=== PATIENT | female | born 1940 | race Caucasian/White ===

== ENCOUNTER 2019-05-09 12:31 | Emergency (ER) | payer MEDICARE, BC ==
[2019-05-09] MEDS ORDERED: Diltiazem 25 MG/5 ML SDV IVPUSH ONE ×2 (12:33→13:46)
--- NOTE | 2019-05-09 13:32 | CR ---
CHEST: Portable CLINICAL HISTORY:Chest pain COMPARISON:None FINDINGS: The heart size, pulmonary vascular and hilar structures are normal. No infiltrate effusion or pneumothorax is seen. IMPRESSION: No acute cardiopulmonary process. Electronic monitor over the left upper chest obscures some detail
[2019-05-09] MEDS ORDERED: Diltiazem 120 MG Cap.CD PO ONE (13:47)
--- NOTE | 2019-05-09 14:55 | EDM.PDOC ---
ED HPI GENERAL MEDICAL PROBLEM - General Chief Complaint: Cardiovascular Problem Stated Complaint: VIA NOR[facility] AM Time Seen by Provider: 05/09/19 12:32 Source of Information: Reports: Patient, EMS History Limitations: Reports: No Limitations - History of Present Illness INITIAL COMMENTS - FREE TEXT/NARRATIVE: This lady comes in for palpitations and rapid heart rate. She denies any cardiac history but was at home working in the garden when suddenly she felt palpitations and felt faint. EMS was called and they've noted atrial fibrillation with rapid ventricular response on an EKG and then she was transported directly to the hospital. She denies ever having any kind of chest pain. She was seen in clinic just recently and a cutaneous cardiac event monitor was then placed on her chest and has not been read yet however area she was having some irregular heartbeat at that time - Related Data Allergies Allergy/AdvReac Type Severity Reaction Status Date / Time adhesive Allergy Rash Verified 06/12/14 07:13 Home Meds: Home Meds Amitriptyline HCl 25 mg PO BEDTIME 03/14/14 [History] Fluticasone Propionate 0.5 gm MC DAILY 03/14/14 [History] Gabapentin [Neurontin] 300 mg PO TID 03/14/14 [History] Lisinopril 40 mg PO DAILY 03/14/14 [History] PARoxetine HCl [Paroxetine HCl] 10 mg PO DAILY 03/14/14 [History] Rosuvastatin [Crestor] 10 mg PO BEDTIME 03/14/14 [History] Zolpidem [Ambien] 5 mg PO BEDTIME 03/14/14 [History] Pantoprazole [Protonix] 40 mg PO BID 06/07/14 [History] Sucralfate [Carafate] 1 gm PO QID 06/07/14 [History] oxyCODONE HCl/Acetaminophen [Percocet 5-325 mg Tablet] 1 tab PO Q4HR PRN [History] Allopurinol [Zyloprim] 100 mg PO DAILY 06/12/14 [History] Calcipotriene [Dovonex 0.005% Crm] 1 applic TOP DAILY 06/12/14 [History] Ferrous Sulfate [Iron] 325 mg PO TID 06/12/14 [History] Hydromorphone 07/20/14 [History] Morphine 07/20/14 [History] Past Medical History HEENT History: Reports: Impaired Vision 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 ED EXAM, GENERAL - Physical Exam Exam: See Below Exam Limited By: No Limitations General Appearance: Alert, WD/WN, Mild Distress Eye Exam: Bilateral Eye: Normal Inspection Throat/Mouth: Normal Inspection Head: Atraumatic Neck: Normal Inspection Respiratory/Chest: Lungs Clear Cardiovascular: Tachycardia, Irregularly Irregular GI/Abdominal: Non-Tender Extremities: Normal Inspection Neurological: Alert, Oriented Psychiatric: Normal Affect Skin Exam: Warm, Dry Course - Vital Signs Last Recorded V/S: Last Vital Signs Temp 34.7 C L 05/09/19 12:49 Pulse 84 05/09/19 14:05 Resp 14 05/09/19 13:31 BP 154/79 H 05/09/19 14:05 Pulse Ox 96 05/09/19 13:31 - Orders/Labs/Meds Orders: Active Orders 24 hr Category Date Time Status EKG Documentation Completion [RC] ASDIRECTED Care 05/09/19 12:33 Active EKG 12 Lead [EK] Urgent Ther 05/09/19 12:33 Ordered Labs: Laboratory Tests 05/09/19 05/09/19 Range/Units 12:40 12:40 WBC 9.4 (4.5-11.0) K/uL RBC 4.66 (3.30-5.50) M/uL Hgb 14.4 D (12.0-15.0) g/dL Hct 44.7 (36.0-48.0) % MCV 96 (80-98) fL MCH 31 (27-31) pg MCHC 32 (32-36) % Plt Count 247 (150-400) K/uL Neut % (Auto) 67 H (36-66) % Lymph % (Auto) 21 L (24-44) % [place] % (Auto) 10 H (2-6) % Eos % (Auto) 2 (2-4) % Baso % (Auto) 0 (0-1) % Sodium 143 (140-148) mmol/L Potassium 4.0 (3.6-5.2) mmol/L Chloride 105 (100-108) mmol/L Carbon Dioxide 26 (21-32) mmol/L Anion Gap 11.6 (5.0-14.0) mmol/L BUN 19 H D (7-18) mg/dL Creatinine 1.0 (0.6-1.0) mg/dL Est Cr Clr Drug Dosing 37.12 mL/min Estimated GFR (MDRD) 53 L (>60) Glucose 101 (74-106) mg/dL Calcium 9.1 D (8.5-10.1) mg/dL Total Bilirubin 0.4 (0.2-1.0) mg/dL AST 13 L (15-37) U/L ALT 28 (12-78) U/L Alkaline Phosphatase 69 (46-116) U/L Troponin I < 0.017 (0.000-0.056) ng/mL Total Protein 6.7 (6.4-8.2) g/dL Albumin 3.5 (3.4-5.0) g/dL Globulin 3.2 (2.3-3.5) g/dL Albumin/Globulin Ratio 1.1 L (1.2-2.2) Meds: Medications Discontinued Medications Generic Name Dose Route Start Last Admin Trade Name Freq PRN Reason Stop Dose Admin Diltiazem HCl 20 mg 05/09/19 12:33 05/09/19 12:44 Diltiazem IVPUSH 05/09/19 12:34 20 mg ONETIME ONE Administration Diltiazem HCl 12.5 mg 05/09/19 13:46 05/09/19 13:58 Diltiazem IVPUSH 05/09/19 13:47 12.5 mg ONETIME ONE Administration Diltiazem HCl 120 mg 05/09/19 13:47 05/09/19 14:05 Cardizem Cd PO 05/09/19 13:48 120 mg ONETIME ONE Administration - Re-Assessments/Exams Free Text/Narrative Re-Assessment/Exam: 05/09/19 15:08 Monitor shows atrial fibrillation with rapid ventricular response. Ventricular rate generally in about the 130s. Treatment the patient received Cardizem 20 mg IV. This brought the heart rate down to approximately 100 and after idea. Of this it began to increase little bit and she was given an additional 12.5 mg. This brought the heart rate down to the 90s. She remains in atrial fibrillation but feels much better. I spoke with the technology specialist recreation specialist at [facility] in [place]. I did not get the name of the doctor but it was a female and she will the fast track her on an appointment for clinic. She asked me to put her on Eliquis but I told her because of her GI bleeding I preferred not to do this. Departure - Departure Time of Disposition: 15:10 Disposition: Home, Self-Care 01 Condition: Fair Clinical Impression: Atrial fibrillation with rapid ventricular response Referrals: PCP,None [Primary Care Provider] - Forms: ED Department Discharge Additional Instructions: continue all your usual medications but add the diltiazem extended release 120 mg once daily. You received the first dose in the ER. The cardiology clinic at [facility] in [place] will contact you probably tomorrow to arrange an appointment. - My Orders Last 24 Hours: My Active Orders 05/09/19 12:33 EKG Documentation Completion [RC] ASDIRECTED EKG 12 Lead [EK] Urgent - Assessment/Plan Last 24 Hours: My Active Orders 05/09/19 12:33 EKG Documentation Completion [RC] ASDIRECTED EKG 12 Lead [EK] Urgent
== END 2019-05-09 15:23 | disposition home or self-care (01) ==
LOC: JP.ED 12:31
DX: I48.2 Chronic atrial fibrillation (principal); Z91.048 Other nonmedicinal substance allergy status; Z79.899 Other long term (current) drug therapy
CPT/HCPCS: 36415; 71045; 80053; 84484; 85025; 93005; 96374; 96376; 99285; A9270; J3490; 93010; 99283

== ENCOUNTER 2019-08-20 09:06 | Emergency (ER) | payer MEDICARE, BC ==
--- NOTE | 2019-08-20 09:46 | EDM.PDOC ---
ED HPI GENERAL MEDICAL PROBLEM - General Chief Complaint: Respiratory Problem Stated Complaint: COUGHING Time Seen by Provider: 08/20/19 09:43 Source of Information: Reports: Patient History Limitations: Reports: No Limitations - History of Present Illness INITIAL COMMENTS - FREE TEXT/NARRATIVE: matteo has had a bad cough for about 2 weeks. She is coughing markedly. She is not running high temps. She has had some low grade fevers. She is very sob with ambulation. Onset: Gradual, Other ( last 10 days. ) Duration: Hour(s): Location: Reports: Chest Associated Symptoms: Reports: Cough, Shortness of Breath, Weakness - Related Data Allergies Allergy/AdvReac Type Severity Reaction Status Date / Time adhesive Allergy Rash Verified 06/12/14 07:13 nickel Allergy Hives Verified 08/20/19 09:33 Home Meds: Home Meds Fluticasone Propionate 0.5 gm MC DAILY 03/14/14 [History] Gabapentin [Neurontin] 300 mg PO TID 03/14/14 [History] Lisinopril 40 mg PO DAILY 03/14/14 [History] PARoxetine HCl [Paroxetine HCl] 10 mg PO DAILY 03/14/14 [History] Rosuvastatin [Crestor] 10 mg PO BEDTIME 03/14/14 [History] Zolpidem [Ambien] 5 mg PO BEDTIME 03/14/14 [History] Pantoprazole [Protonix] 40 mg PO BID 06/07/14 [History] Sucralfate [Carafate] 1 gm PO QID 06/07/14 [History] Allopurinol [Zyloprim] 100 mg PO DAILY 06/12/14 [History] Calcipotriene [Dovonex 0.005% Crm] 1 applic TOP DAILY 06/12/14 [History] Ferrous Sulfate [Iron] 325 mg PO TID 06/12/14 [History] Albuterol Sulfate [Proair Hfa] 8.5 gm IH ASDIRECTED 08/20/19 [History] Amoxicillin 875 mg PO TID 08/20/19 [History] Dronedarone [Multaq] 1 tab PO BID 08/20/19 [History] Meloxicam 7.5 mg PO DAILY 08/20/19 [History] Promethazine HCl/Codeine [Promethazine-Codeine Syrup] 5 ml PO ASDIRECTED [History] Warfarin [Coumadin] 5 mg PO DAILY 08/20/19 [History] Zolpidem [Ambien] 5 mg PO BEDTIME PRN 08/20/19 [History] amLODIPine Besylate [Amlodipine Besylate] 5 mg PO DAILY 08/20/19 [History] traZODone HCl [Trazodone HCl] 50 mg PO BEDTIME 08/20/19 [History] Past Medical History HEENT History: Reports: Impaired Vision 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: - Infectious Disease History Infectious Disease History: Reports: Chicken Pox, Measles, Mumps - Past Surgical History GI Surgical History: Reports: Appendectomy, Hernia Repair/Other Female Surgical History: Reports: Hysterectomy Musculoskeletal Surgical History: Reports: Other (See Below) Other Musculoskeletal Surgeries/Procedures:: back surgery Social & Family History - Tobacco Use Smoking Status *Q: Never Smoker - Caffeine Use Caffeine Use: Reports: Coffee ED ROS GENERAL - Review of Systems Review Of Systems: See Below Constitutional: Reports: Chills, Malaise HEENT: Reports: No Symptoms Respiratory: Reports: Shortness of Breath, Cough, Other (pt is not raising sputum. ) Cardiovascular: Reports: No Symptoms Endocrine: Reports: No Symptoms GI/Abdominal: Reports: No Symptoms : Reports: No Symptoms Musculoskeletal: Reports: No Symptoms Skin: Reports: No Symptoms Neurological: Reports: No Symptoms ED EXAM, GENERAL - Physical Exam Exam: See Below Free Text/Narrative:: pt arrived at this time with a marked cough. She is not raising sputum. She does not have a fever. Exam Limited By: No Limitations General Appearance: Alert, Anxious, Moderate Distress Ears: Normal TMs Nose: Normal Inspection Throat/Mouth: Normal Inspection Head: Atraumatic Neck: Normal Inspection Respiratory/Chest: Decreased Breath Sounds, Wheezing Cardiovascular: Regular Rate, Rhythm, Tachycardia GI/Abdominal: Soft, Non-Tender Rectal (Female) Exam: Deferred Back Exam: Normal Inspection Extremities: Normal Inspection Neurological: Alert, Oriented, Normal Cognition Course - Vital Signs Last Recorded V/S: Last Vital Signs Temp 37.0 C 08/20/19 09:28 Pulse 78 08/20/19 09:28 Resp 20 08/20/19 09:28 BP 185/89 H 08/20/19 09:28 Pulse Ox 90 L 08/20/19 09:28 - Orders/Labs/Meds Orders: Active Orders 24 hr Category Date Time Status RT Aerosol Therapy [RC] ASDIRECTED Care 08/20/19 09:43 Active RT Aerosol Therapy [RC] ASDIRECTED Care 08/20/19 12:01 Active UA W/MICROSCOPIC [URIN] Urgent Lab 08/20/19 09:35 Ordered Sodium Chloride 0.9% [Normal Saline] 1,000 ml Med 08/20/19 12:00 Active IV ASDIRECTED Medication Orders Sodium Chloride (Normal Saline) 1,000 mls @ 999 mls/hr IV ASDIRECTED MARY Last Admin: 08/20/19 12:19 Dose: 999 mls/hr Labs: Laboratory Tests 08/20/19 08/20/19 08/20/19 Range/Units 09:45 09:45 09:45 WBC 15.1 H (4.5-11.0) K/uL RBC 4.09 (3.30-5.50) M/uL Hgb 12.4 D (12.0-15.0) g/dL Hct 39.2 (36.0-48.0) % MCV 96 (80-98) fL MCH 30 (27-31) pg MCHC 32 (32-36) % Plt Count 380 (150-400) K/uL Neut % (Auto) 83 H (36-66) % Lymph % (Auto) 9 L (24-44) % [place] % (Auto) 8 H (2-6) % Eos % (Auto) 0 L (2-4) % Baso % (Auto) 0 (0-1) % Sodium 144 (140-148) mmol/L Potassium 3.7 (3.6-5.2) mmol/L Chloride 109 H (100-108) mmol/L Carbon Dioxide 23 (21-32) mmol/L Anion Gap 15.7 H (5.0-14.0) mmol/L BUN 25 H (7-18) mg/dL Creatinine 0.9 (0.6-1.0) mg/dL Est Cr Clr Drug Dosing 42.15 mL/min Estimated GFR (MDRD) > 60 (>60) Glucose 98 (74-106) mg/dL Calcium 9.0 (8.5-10.1) mg/dL Total Bilirubin 0.3 (0.2-1.0) mg/dL AST 15 (15-37) U/L ALT 25 (12-78) U/L Alkaline Phosphatase 72 (46-116) U/L NT-Pro-B Natriuret Pep 503 H (5-450) pg/mL Total Protein 7.4 (6.4-8.2) g/dL Albumin 3.4 (3.4-5.0) g/dL Globulin 4.0 H (2.3-3.5) g/dL Albumin/Globulin Ratio 0.9 L (1.2-2.2) Meds: Medications Generic Name Dose Route Start Last Admin Trade Name Freq PRN Reason Stop Dose Admin Sodium Chloride 1,000 mls @ 999 mls/hr 08/20/19 12:00 08/20/19 12:19 Normal Saline IV 999 mls/hr ASDIRECTED MARY Administration Discontinued Medications Generic Name Dose Route Start Last Admin Trade Name Freq PRN Reason Stop Dose Admin Albuterol 2.5 mg 08/20/19 09:43 08/20/19 09:51 Proventil Neb Soln NEB 08/20/19 09:44 2.5 mg ONETIME ONE Administration Albuterol 2.5 mg 08/20/19 12:01 08/20/19 12:22 Proventil Neb Soln NEB 08/20/19 12:02 2.5 mg ONETIME ONE Administration Ceftriaxone Sodium 1 gm/ 50 mls @ 100 mls/hr 08/20/19 11:58 08/20/19 12:21 Sodium Chloride IV 08/20/19 12:27 100 mls/hr ONETIME ONE Administration - Re-Assessments/Exams Free Text/Narrative Re-Assessment/Exam: 08/20/19 12:19 pt did have a neg influ done at the clinic. Her wbc was 15,ooo and mainly segs. She has had 3 days of amoxicillin. Her chest xray reveals a middle lobe pneumonia on the rt. She had a neb and shresponded to that and her cough is better. Departure - Departure Time of Disposition: 12:21 Disposition: Home, Self-Care 01 Condition: Fair Clinical Impression: Right middle lobe pneumonia - Discharge Information Instructions: Community-Acquired Pneumonia, Adult, [id number] Referrals: Juan Haas MD [Primary Care Provider] - Forms: ED Department Discharge Care Plan Goals: .push fluids, tylenol for body aches, follow up with Juan Scott in 4-5 days, levoquin 500mg daily , stop amoxicillin, albuterol neb tid 2.5 in 3 cc. geovanny quintanillaes 1 tab q8h as needed for the cough cool mist humidifier at the bedside. - My Orders Last 24 Hours: My Active Orders 08/20/19 09:35 UA W/MICROSCOPIC [URIN] Urgent 08/20/19 09:43 RT Aerosol Therapy [RC] ASDIRECTED 08/20/19 12:00 Sodium Chloride 0.9% [Normal Saline] 1,000 ml IV ASDIRECTED 08/20/19 12:01 RT Aerosol Therapy [RC] ASDIRECTED - Assessment/Plan Last 24 Hours: My Active Orders 08/20/19 09:35 UA W/MICROSCOPIC [URIN] Urgent 08/20/19 09:43 RT Aerosol Therapy [RC] ASDIRECTED 08/20/19 12:00 Sodium Chloride 0.9% [Normal Saline] 1,000 ml IV ASDIRECTED 08/20/19 12:01 RT Aerosol Therapy [RC] ASDIRECTED
[2019-08-20] MEDS: Albuterol 0.083% 2.5 MG/3 ML Neb Soln NEB ONE ×2 (09:51→12:22)
--- NOTE | 2019-08-20 11:40 | CRLCR ---
INDICATION: Cough. Shortness of breath. TECHNIQUE: Two-view chest. COMPARISON: Portable chest May 09, 2019. FINDINGS: New curvilinear opacity right middle lobe likely related to an infectious or inflammatory process. Clear left lung. Normal heart size. Hypertrophic spurring of the lower thoracic spine. Postsurgical change from upper lumbar spine fusion posteriorly. IMPRESSION: New infiltrate right middle lobe. Radiographic follow up recommended after appropriate treatment. Dictated by Jayy Duran MD @ Aug 20 2019 11:37AM Signed by Dr. Jayy Duran @ Aug 20 2019 11:38AM
[2019-08-20] MEDS: Sodium Chloride 0.9% 1,000 ML IV SCH (12:19)
[2019-08-20] MEDS: cefTRIAXone 1 GM in Sodium Chloride 0.9% 50 ML IV ONE (12:21)
== END 2019-08-20 13:48 | disposition home or self-care (01) ==
LOC: JP.ED 09:06
DX: J18.9 Pneumonia, unspecified organism (principal); Z79.899 Other long term (current) drug therapy; Z91.09 Other allergy status, other than to drugs and biological substances
CPT/HCPCS: 36415; 71046; 80053; 83880; 85025; 94640; 96365; 99285; J0696; J7030; J7050

== ENCOUNTER 2020-05-01 20:12 | Emergency (ER) | payer MEDICARE, BC ==
[2020-05-01] MEDS ORDERED: Sodium Chloride 0.9% 1,000 ML IV ONE (21:04)
--- NOTE | 2020-05-01 21:09 | EDM.PDOC ---
ED HPI GENERAL MEDICAL PROBLEM - General Chief Complaint: General Stated Complaint: A FIB Time Seen by Provider: 05/01/20 21:04 Source of Information: Reports: Patient, Family, RN, RN Notes Reviewed History Limitations: Reports: No Limitations - History of Present Illness INITIAL COMMENTS - FREE TEXT/NARRATIVE: Pt here with daughter via private vehicle. Pt states had three explosive diarrhea stools since 1400 today. Was incontinent with two of them due to quick onset. Pt feels weak. Denies pain or distress. Pt indicates has Afib but takes 1/2 doses of Afib medicaiton a day due to cost. Claims cardiac dr bee. Onset: Today Onset Date: 05/01/20 Onset Time: 14:00 Duration: Intermittent, Recurring Location: Reports: Abdomen Quality: Reports: Other (explosive diarrhea ) Improves with: Reports: None Worsens with: Reports: None Associated Symptoms: Reports: Weakness - Related Data Allergies Allergy/AdvReac Type Severity Reaction Status Date / Time adhesive Allergy Rash Verified 06/12/14 07:13 nickel Allergy Hives Verified 08/20/19 09:33 Home Meds: Home Meds Fluticasone Propionate 0.5 gm MC DAILY 03/14/14 [History] Gabapentin [Neurontin] 300 mg PO TID 03/14/14 [History] Lisinopril 40 mg PO DAILY 03/14/14 [History] PARoxetine HCL [Paroxetine HCl] 10 mg PO DAILY 03/14/14 [History] Rosuvastatin [Crestor] 10 mg PO BEDTIME 03/14/14 [History] Zolpidem [Ambien] 5 mg PO BEDTIME 03/14/14 [History] Pantoprazole [Protonix] 40 mg PO BID 06/07/14 [History] Sucralfate [Carafate] 1 gm PO QID 06/07/14 [History] Calcipotriene [Dovonex 0.005% Crm] 1 applic TOP DAILY 06/12/14 [History] Ferrous Sulfate [Iron] 325 mg PO TID 06/12/14 [History] allopurinoL [Zyloprim] 100 mg PO DAILY 06/12/14 [History] Dronedarone [Multaq] 1 tab PO BID 08/20/19 [History] Meloxicam 7.5 mg PO DAILY 08/20/19 [History] Promethazine HCl/Codeine [Promethazine-Codeine Syrup] 5 ml PO ASDIRECTED 1 10/20/18 [History] Warfarin [Coumadin] 5 mg PO DAILY 08/20/19 [History] Zolpidem [Ambien] 5 mg PO BEDTIME PRN 08/20/19 [History] amLODIPine Besylate [Amlodipine Besylate] 5 mg PO DAILY 08/20/19 [History] traZODone HCl [Trazodone HCl] 25 mg PO BEDTIME 08/20/19 [History] Past Medical History HEENT History: Reports: Impaired Vision Cardiovascular History: Reports: Afib, High Cholesterol, Hypertension Gastrointestinal History: Reports: Chronic Diarrhea, Gastritis, GERD, GI Bleed Other Genitourinary History: stent for blockage 25 years ago and removed 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: Musculoskeletal History: Reports: Gout Hematologic History: Reports: Blood Transfusion(s) Dermatologic History: Reports: Psoriasis - Infectious Disease History Infectious Disease History: Reports: Chicken Pox, Measles, Mumps - Past Surgical History GI Surgical History: Reports: Appendectomy, Hernia Repair/Other Female Surgical History: Reports: Hysterectomy Neurological Surgical History: Reports: Lumbar Spine, Spinal Fusion Musculoskeletal Surgical History: Reports: Other (See Below) Other Musculoskeletal Surgeries/Procedures:: back surgery Social & Family History - Tobacco Use Smoking Status *Q: Never Smoker - Caffeine Use Caffeine Use: Reports: Coffee - Living Situation & Occupation Living situation: Reports: with Spouse Occupation: Retired (Single dwelling home) ED ROS GENERAL - Review of Systems Review Of Systems: See Below Constitutional: Reports: Weakness HEENT: Reports: No Symptoms Respiratory: Reports: No Symptoms Cardiovascular: Reports: Other (Afib ) Endocrine: Reports: No Symptoms GI/Abdominal: Reports: Diarrhea, Stool Incontinence : Reports: No Symptoms Musculoskeletal: Reports: Other (arthritis) Skin: Reports: No Symptoms Neurological: Reports: Weakness Psychiatric: Reports: No Symptoms Hematologic/Lymphatic: Reports: No Symptoms Immunologic: Reports: No Symptoms ED EXAM, GENERAL - Physical Exam Exam: See Below Exam Limited By: No Limitations General Appearance: Alert, WD/WN, Mild Distress Eye Exam: Bilateral Eye: PERRL Throat/Mouth: Normal Inspection, Normal Lips Head: Normocephalic Neck: Normal Inspection Respiratory/Chest: No Respiratory Distress, Lungs Clear, Normal Breath Sounds, No Accessory Muscle Use Cardiovascular: Normal Peripheral Pulses, No Murmur, No Rub, Irregularly Irregular (Hx Afib) Peripheral Pulses: 2+: Radial (L), Radial (R), Dorsalis Pedis (L), Dorsalis Pedis (R) GI/Abdominal: Normal Bowel Sounds, Soft, Non-Tender, No Organomegaly, No Distention, No Mass (Female) Exam: Deferred Rectal (Female) Exam: Deferred Extremities: Normal Inspection Neurological: Alert, Oriented, CN II-XII Intact, Normal Cognition, No Motor/Sensory Deficits Psychiatric: Normal Affect, Normal Mood Skin Exam: Warm, Dry, Intact, Normal Color, Diaphoretic (At time of stooling) Lymphatic: No Adenopathy Course - Vital Signs Last Recorded V/S: Last Vital Signs Temp 36.4 C 05/01/20 20:34 Pulse 127 H 05/01/20 22:00 Resp 13 05/01/20 21:36 BP 125/86 05/01/20 22:00 Pulse Ox 90 L 05/01/20 21:36 - Orders/Labs/Meds Orders: Active Orders 24 hr Category Date Time Status EKG Documentation Completion [RC] ASDIRECTED Care 05/01/20 21:13 Active Chest 2V [CR] Stat Exams 05/01/20 20:43 Taken UA W/O MICROSCOPIC [URIN] Stat Lab 05/01/20 20:43 Ordered EKG 12 Lead [EK] Routine Ther 05/01/20 21:13 Ordered Labs: Laboratory Tests 05/01/20 05/01/20 05/01/20 Range/Units 20:50 20:50 20:50 WBC 14.4 H (4.5-11.0) K/uL RBC 4.22 (3.30-5.50) M/uL Hgb 12.8 (12.0-15.0) g/dL Hct 41.1 (36.0-48.0) % MCV 97 (80-98) fL MCH 30 (27-31) pg MCHC 31 L (32-36) % Plt Count 312 (150-400) K/uL Neut % (Auto) 72 H (36-66) % Lymph % (Auto) 18 L (24-44) % Martin % (Auto) 9 H (2-6) % Eos % (Auto) 1 L (2-4) % Baso % (Auto) 0 (0-1) % Sodium 145 (140-148) mmol/L Potassium 3.7 (3.6-5.2) mmol/L Chloride 105 (100-108) mmol/L Carbon Dioxide 23 (21-32) mmol/L Anion Gap 17.1 H (5.0-14.0) mmol/L BUN 31 H (7-18) mg/dL Creatinine 1.6 H D (0.6-1.0) mg/dL Est Cr Clr Drug Dosing 23.81 mL/min Estimated GFR (MDRD) 31 L (>60) Glucose 135 H (74-106) mg/dL Lactic Acid 1.5 (0.4-2.0) mmol/L Calcium 9.2 (8.5-10.1) mg/dL Total Bilirubin 0.4 (0.2-1.0) mg/dL AST 19 (15-37) U/L ALT 26 (12-78) U/L Alkaline Phosphatase 60 (46-116) U/L Total Protein 7.0 (6.4-8.2) g/dL Albumin 3.7 (3.4-5.0) g/dL Globulin 3.3 (2.3-3.5) g/dL Albumin/Globulin Ratio 1.1 L (1.2-2.2) Procalcitonin ng/mL 05/01/20 Range/Units 20:50 WBC (4.5-11.0) K/uL RBC (3.30-5.50) M/uL Hgb (12.0-15.0) g/dL Hct (36.0-48.0) % MCV (80-98) fL MCH (27-31) pg MCHC (32-36) % Plt Count (150-400) K/uL Neut % (Auto) (36-66) % Lymph % (Auto) (24-44) % Martin % (Auto) (2-6) % Eos % (Auto) (2-4) % Baso % (Auto) (0-1) % Sodium (140-148) mmol/L Potassium (3.6-5.2) mmol/L Chloride (100-108) mmol/L Carbon Dioxide (21-32) mmol/L Anion Gap (5.0-14.0) mmol/L BUN (7-18) mg/dL Creatinine (0.6-1.0) mg/dL Est Cr Clr Drug Dosing mL/min Estimated GFR (MDRD) (>60) Glucose (74-106) mg/dL Lactic Acid (0.4-2.0) mmol/L Calcium (8.5-10.1) mg/dL Total Bilirubin (0.2-1.0) mg/dL AST (15-37) U/L ALT (12-78) U/L Alkaline Phosphatase (46-116) U/L Total Protein (6.4-8.2) g/dL Albumin (3.4-5.0) g/dL Globulin (2.3-3.5) g/dL Albumin/Globulin Ratio (1.2-2.2) Procalcitonin < 0.05 ng/mL Meds: Medications Discontinued Medications Generic Name Dose Route Start Last Admin Trade Name Freq PRN Reason Stop Dose Admin Sodium Chloride 1,000 mls @ 999 mls/hr 05/01/20 21:04 05/01/20 21:14 Normal Saline IV 05/01/20 22:04 999 mls/hr .BOLUS ONE Administration Loperamide HCl 4 mg 05/01/20 22:44 Imodium PO 05/01/20 22:45 ONETIME ONE Metoclopramide HCl 10 mg 05/01/20 21:23 05/01/20 21:34 Reglan PO 05/01/20 21:24 10 mg ONETIME ONE Administration Metoprolol Tartrate 2.5 mg 05/01/20 21:27 05/01/20 21:31 Lopressor IVPUSH 05/01/20 21:28 2.5 mg ONETIME ONE Administration Metoprolol Tartrate 2.5 mg 05/01/20 21:54 05/01/20 22:00 Lopressor IVPUSH 05/01/20 21:55 2.5 mg ONETIME ONE Administration - Re-Assessments/Exams Free Text/Narrative Re-Assessment/Exam: 05/01/20 21:12 Examine pt labs ordered Bolus EKG 05/01/20 21:29 EKG done CXR done. Looks good Some labs back. BUN/Crea/GFR abnormal Bolus going HR 110-140's. Lopressor IVP 05/01/20 22:46 Bolus done. Feels better. Will give imodium here and send RX at d/c Departure - Departure Time of Disposition: 22:46 Disposition: Home, Self-Care 01 Condition: Good Clinical Impression: Diarrhea Qualifiers: Diarrhea type: unspecified type Qualified Code(s): R19.7 - Diarrhea, unspecified - Discharge Information *PRESCRIPTION DRUG MONITORING PROGRAM REVIEWED*: Not Applicable *COPY OF PRESCRIPTION DRUG MONITORING REPORT IN PATIENT [place]: Not Applicable Instructions: Food Choices to Help Relieve Diarrhea, Adult, Diarrhea, Adult, [id number] Referrals: Juan Haas MD [Primary Care Provider] - Forms: ED Department Discharge Additional Instructions: Please take Imodium and Reglan as directed. Hold taking the packets until you speak with your provider I would make an appointment to go over medication list with your provider regarding your medication list and possibly switching to Amiodarone for Afib based on the cost. Please monitor your pulse to keep track of Afib or heart irregularities. Should you continue with diarrhea, please seek assistance from your provider or come back to the ER. Sepsis Event Note (ED) - Evaluation Sepsis Screening Result: No Definite Risk - Focused Exam Vital Signs: Vital Signs Temp Pulse Pulse Resp BP BP Pulse Ox 05/01/20 22:00 127 H 125/86 05/01/20 21:36 92 13 125/86 90 L 05/01/20 21:31 120 H 117/78 05/01/20 21:02 109 H 14 117/78 93 L 05/01/20 20:34 36.4 C 142 H 15 140/70 96 - My Orders Last 24 Hours: My Active Orders 05/01/20 20:43 Chest 2V [CR] Stat UA W/O MICROSCOPIC [URIN] Stat 05/01/20 21:13 EKG Documentation Completion [RC] ASDIRECTED EKG 12 Lead [EK] Routine - Assessment/Plan Last 24 Hours: My Active Orders 05/01/20 20:43 Chest 2V [CR] Stat UA W/O MICROSCOPIC [URIN] Stat 05/01/20 21:13 EKG Documentation Completion [RC] ASDIRECTED EKG 12 Lead [EK] Routine
[2020-05-01] MEDS ORDERED: Metoclopramide 10 MG Tab PO ONE (21:23)
[2020-05-01] MEDS ORDERED: Metoprolol Tartrate 5 MG/5 ML SDV IVPUSH ONE ×2 (21:27→21:54)
[2020-05-01] MEDS ORDERED: Loperamide 2 MG Cap PO ONE (22:44)
--- NOTE | 2020-05-02 09:01 | CR ---
CHEST: 2 view CLINICAL HISTORY:A. Fib COMPARISON:2019 FINDINGS: The heart size, pulmonary vascularity and hilar structures are normal. No infiltrate effusion or pneumothorax is seen. There are atherosclerotic changes in the aorta. IMPRESSION: No acute cardiopulmonary process.
== END 2020-05-01 23:03 | disposition home or self-care (01) ==
LOC: JP.ED 20:12
DX: R19.7 Diarrhea, unspecified (principal); I48.91 Unspecified atrial fibrillation; E78.00 Pure hypercholesterolemia, unspecified; I10 Essential (primary) hypertension; M10.9 Gout, unspecified; K21.9 Gastro-esophageal reflux disease without esophagitis; Z91.09 Other allergy status, other than to drugs and biological substances; Z91.048 Other nonmedicinal substance allergy status
CPT/HCPCS: 36415; 71046; 80053; 83605; 84145; 85025; 93005; 93010; 96361; 96374; 99283; 99285; A9270; J3490; J7040

== ENCOUNTER 2020-12-29 13:14 | Emergency (ER) | payer MEDICARE, BC ==
[2020-12-29] MEDS ORDERED: Sodium Chloride 0.9% 10 ML Syringe FLUSH PRN (13:20)
--- NOTE | 2020-12-29 13:27 | EDM.PDOC ---
ED HPI GENERAL MEDICAL PROBLEM - General Chief Complaint: Gastrointestinal Problem Stated Complaint: WEAK VIA [place] Time Seen by Provider: 12/29/20 13:21 Source of Information: Reports: Patient, EMS, Old Records History Limitations: Reports: No Limitations - History of Present Illness INITIAL COMMENTS - FREE TEXT/NARRATIVE: 80 yo female who lives alone is brought in by EMS for nausea, vomiting and diarrhea associated with weakness. Has a pHx of afib, stopped her Eliquis due to a dental appt scheduled for tomorrow. No obvious focal deficits per EMS. Onset of her GI sx's at bedtime last night. No blood in her emesis or stools. No known exposures. Has had a "sinus COBOS" for the past over a week. Her last acetaminophen was last night. Onset: Gradual Onset Date: 12/28/20 Duration: Hour(s):, Getting Worse Location: Reports: Abdomen, Generalized Quality: Reports: Ache (headache, subacute) Severity: Severe (weakness is severe, vomiting and diarrhea is moderate.) Improves with: Reports: None Worsens with: Reports: None Context: Reports: Other (See HPI) Associated Symptoms: Reports: Headaches (preceded the GI sx's by several days. ), Nausea/Vomiting. 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) (none) - Related Data Allergies Allergy/AdvReac Type Severity Reaction Status Date / Time adhesive Allergy Rash Verified 12/29/20 13:34 nickel Allergy Hives Verified 12/29/20 13:34 Home Meds: Home Meds Fluticasone Propionate 0.5 gm MC DAILY 03/14/14 [History] Gabapentin [Neurontin] 600 mg PO DAILY 03/14/14 [History] Lisinopril 40 mg PO DAILY 03/14/14 [History] Rosuvastatin [Crestor] 10 mg PO BEDTIME 03/14/14 [History] Pantoprazole [Protonix] 40 mg PO DAILY 06/07/14 [History] allopurinoL [Zyloprim] 100 mg PO DAILY 06/12/14 [History] Dronedarone [Multaq] 400 mg PO BID 08/20/19 [History] Zolpidem [Ambien] 5 mg PO BEDTIME PRN 08/20/19 [History] amLODIPine Besylate [Amlodipine Besylate] 5 mg PO DAILY 08/20/19 [History] Cholestyramine/Aspartame [Cholestyramine Light Powder] 210 gm PO DAILY 12/29/20 [History] Dicyclomine [Bentyl] 10 mg PO ASDIRECTED PRN 12/29/20 [History] Imipramine HCl [Imipramine] 10 mg PO TID 12/29/20 [History] Loperamide [Imodium] 2 mg PO ASDIRECTED PRN 12/29/20 [History] Metoclopramide [Reglan] 5 mg PO ASDIRECTED PRN 12/29/20 [History] Past Medical History HEENT History: Reports: Impaired Vision Cardiovascular History: Reports: Afib, High Cholesterol, Hypertension Gastrointestinal History: Reports: Chronic Diarrhea, Gastritis, GERD, GI Bleed Other Genitourinary History: stent for blockage 25 years ago and removed 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: Musculoskeletal History: Reports: Gout Hematologic History: Reports: Blood Transfusion(s) Dermatologic History: Reports: Psoriasis - Infectious Disease History Infectious Disease History: Reports: Chicken Pox, Measles, Mumps - Past Surgical History GI Surgical History: Reports: Appendectomy, Hernia Repair/Other Female Surgical History: Reports: Hysterectomy Other Female Surgeries/Procedures: 1 ovary left Neurological Surgical History: Reports: Lumbar Spine, Spinal Fusion Musculoskeletal Surgical History: Reports: Other (See Below) Other Musculoskeletal Surgeries/Procedures:: back surgery Social & Family History - Caffeine Use Caffeine Use: Reports: Coffee - Living Situation & Occupation Living situation: Reports: with Spouse Occupation: Retired (Single dwelling home) ED ROS GENERAL - Review of Systems Review Of Systems: See Below Constitutional: Reports: Malaise, Weakness (generalized) HEENT: Reports: No Symptoms Respiratory: Reports: No Symptoms Cardiovascular: Reports: No Symptoms GI/Abdominal: Reports: Diarrhea, Nausea, Vomiting. Denies: Abdominal Pain, Black Stool, Bloody Stool, Constipation, Flatus, Hematemesis, Hematochezia, Melena : Reports: No Symptoms Musculoskeletal: Reports: No Symptoms Skin: Reports: No Symptoms Neurological: Reports: No Symptoms ED EXAM, GI/ABD - Physical Exam Exam: See Below Exam Limited By: No Limitations General Appearance: Alert, WD/WN, No Apparent Distress Eyes: Bilateral: Normal Appearance Ears: Normal External Exam, Normal Canal, Hearing Grossly Normal, Normal TMs Nose: Normal Inspection, No Blood Throat/Mouth: Normal Inspection, Normal Lips, Normal Oropharynx, Normal Voice, No Airway Compromise Head: Atraumatic, Normocephalic Neck: Normal Inspection Respiratory/Chest: No Respiratory Distress, Lungs Clear, Normal Breath Sounds, No Accessory Muscle Use. No: Chest Non-Tender (sternal tenderness present) Cardiovascular: Regular Rate, Rhythm, No Edema GI/Abdominal Exam: Normal Bowel Sounds, Soft, Non-Tender, No Distention Back Exam: Normal Inspection Extremities: Normal Inspection, Normal Range of Motion, Non-Tender, No Pedal Edema Neurological: Alert, Oriented, CN II-XII Intact, Normal Cognition, No Motor/Sensory Deficits Psychiatric: Normal Affect, Normal Mood Skin Exam: Warm, Dry, Intact, Normal Color, No Rash Course - Vital Signs Last Recorded V/S: Last Vital Signs Temp 36.6 C 12/29/20 13:40 Pulse 71 12/29/20 16:56 Resp 10 L 12/29/20 16:56 BP 122/59 L 12/29/20 16:56 Pulse Ox 96 12/29/20 16:56 Orthostatic Blood Pressure [ 119/67 Standing] Orthostatic Blood Pressure [ 116/70 Sitting] Orthostatic Blood Pressure [ 127/63 Supine] - Orders/Labs/Meds Orders: Active Orders 24 hr Category Date Time Status Cardiac Monitoring [RC] .As Directed Care 12/29/20 13:21 Active Sodium Chloride 0.9% [Saline Flush] Med 12/29/20 13:20 Active 10 ml FLUSH ASDIRECTED PRN Saline Lock Insert [OM.PC] Routine Oth 12/29/20 13:20 Ordered Medication Orders Sodium Chloride (Sodium Chloride 0.9% 10 Ml Syringe) 10 ml FLUSH ASDIRECTED PRN PRN Reason: Keep Vein Open Last Admin: 12/29/20 13:45 Dose: 10 ml Documented by: LEÓN Labs: Laboratory Tests 12/29/20 12/29/20 12/29/20 Range/Units 13:23 13:23 13:59 WBC 14.0 H (4.5-11.0) K/uL RBC 4.45 (3.30-5.50) M/uL Hgb 13.9 (12.0-15.0) g/dL Hct 42.4 (36.0-48.0) % MCV 95 (80-98) fL MCH 31 (27-31) pg MCHC 33 (32-36) % Plt Count 289 (150-400) K/uL ESR (0-25) mm/hr Sodium 142 (140-148) mmol/L Potassium 4.3 (3.6-5.2) mmol/L Chloride 104 (100-108) mmol/L Carbon Dioxide 19 L (21-32) mmol/L Anion Gap 23.3 H (5.0-14.0) mmol/L BUN 22 H (7-18) mg/dL Creatinine 1.2 H (0.6-1.0) mg/dL Est Cr Clr Drug Dosing TNP Estimated GFR (MDRD) 43 L (>60) Glucose 111 H (74-106) mg/dL Calcium 10.2 H (8.5-10.1) mg/dL Total Bilirubin 0.5 (0.2-1.0) mg/dL AST 17 (15-37) U/L ALT 24 (12-78) U/L Alkaline Phosphatase 83 (46-116) U/L Troponin I < 0.017 (0.000-0.056) ng/mL Total Protein 7.3 (6.4-8.2) g/dL Albumin 4.2 (3.4-5.0) g/dL Globulin 3.1 (2.3-3.5) g/dL Albumin/Globulin Ratio 1.4 (1.2-2.2) Urine Color Yellow (YELLOW) Urine Appearance Clear (CLEAR) Urine pH 5.0 (5.0-8.0) Ur Specific [place] 1.025 (1.008-1.030) Urine Protein 30 H (NEGATIVE) mg/dL Urine Glucose (UA) Negative (NEGATIVE) mg/dL Urine Ketones Trace H (NEGATIVE) mg/dL Urine Occult Blood Negative (NEGATIVE) Urine Nitrite Negative (NEGATIVE) Urine Bilirubin Small H (NEGATIVE) Urine Urobilinogen 0.2 (0.2-1.0) EU/dL Ur Leukocyte Esterase Negative (NEGATIVE) Urine RBC 0-5 (0-5) Urine WBC 0-5 (0-5) Ur Epithelial Cells Not seen Amorphous Sediment Moderate Urine Bacteria Occasional Urine Mucus Occasional Urine Other 12/29/20 Range/Units 14:14 WBC (4.5-11.0) K/uL RBC (3.30-5.50) M/uL Hgb (12.0-15.0) g/dL Hct (36.0-48.0) % MCV (80-98) fL MCH (27-31) pg MCHC (32-36) % Plt Count (150-400) K/uL ESR 15 (0-25) mm/hr Sodium (140-148) mmol/L Potassium (3.6-5.2) mmol/L Chloride (100-108) mmol/L Carbon Dioxide (21-32) mmol/L Anion Gap (5.0-14.0) mmol/L BUN (7-18) mg/dL Creatinine (0.6-1.0) mg/dL Est Cr Clr Drug Dosing Estimated GFR (MDRD) (>60) Glucose (74-106) mg/dL Calcium (8.5-10.1) mg/dL Total Bilirubin (0.2-1.0) mg/dL AST (15-37) U/L ALT (12-78) U/L Alkaline Phosphatase (46-116) U/L Troponin I (0.000-0.056) ng/mL Total Protein (6.4-8.2) g/dL Albumin (3.4-5.0) g/dL Globulin (2.3-3.5) g/dL Albumin/Globulin Ratio (1.2-2.2) Urine Color (YELLOW) Urine Appearance (CLEAR) Urine pH (5.0-8.0) Ur Specific [place] (1.008-1.030) Urine Protein (NEGATIVE) mg/dL Urine Glucose (UA) (NEGATIVE) mg/dL Urine Ketones (NEGATIVE) mg/dL Urine Occult Blood (NEGATIVE) Urine Nitrite (NEGATIVE) Urine Bilirubin (NEGATIVE) Urine Urobilinogen (0.2-1.0) EU/dL Ur Leukocyte Esterase (NEGATIVE) Urine RBC (0-5) Urine WBC (0-5) Ur Epithelial Cells Amorphous Sediment Urine Bacteria Urine Mucus Urine Other Meds: Medications Generic Name Dose Route Start Last Admin Trade Name Freq PRN Reason Stop Dose Admin Sodium Chloride 10 ml 12/29/20 13:20 12/29/20 13:45 Sodium Chloride 0.9% 10 Ml Syringe FLUSH 10 ml ASDIRECTED PRN Administration Keep Vein Open Discontinued Medications Generic Name Dose Route Start Last Admin Trade Name Freq PRN Reason Stop Dose Admin Acetaminophen 1,000 mg 12/29/20 13:31 12/29/20 13:45 Acetaminophen 500 Mg Tab PO 12/29/20 13:32 1,000 mg ONETIME ONE Administration Diphenoxylate HCl/Atropine 1 tab 12/29/20 13:38 12/29/20 13:45 Atropine/Diphenoxylate 0.025-2.5 Mg Tab PO 12/29/20 13:39 1 tab ONETIME ONE Administration Lactated Ringer's 1,000 mls @ 1,000 mls/hr 12/29/20 14:00 12/29/20 14:06 Ringers, Lactated IV 12/29/20 14:59 1,000 mls/hr BOLUS ONE Administration Lactated Ringer's 1,000 mls @ 1,000 mls/hr 12/29/20 15:45 12/29/20 15:49 Ringers, Lactated IV 12/29/20 16:44 1,000 mls/hr BOLUS ONE Administration Ondansetron HCl 4 mg 12/29/20 13:30 Ondansetron 4 Mg/2 Ml Sdv IVPUSH 12/29/20 13:31 ONETIME ONE Oxycodone HCl 5 mg 12/29/20 16:10 12/29/20 16:20 Oxycodone 5 Mg Tab PO 12/29/20 16:11 5 mg ONETIME ONE Administration - Radiology Interpretation Free Text/Narrative:: Head CT scan- Impression: 1. No acute intracranial hemorrhage or mass. 2. Mild ethmoid sinus disease. Please note that all CT scans at this facility use dose modulation, iterative reconstruction, and/or weight-based dosing when appropriate to reduce radiation dose to as low as reasonably achievable. Dictated by Julia Peters MD @ Dec 29 2020 3:45PM CT Results Date: 12/29/20 CT Results Time: 16:07 - Re-Assessments/Exams Free Text/Narrative Re-Assessment/Exam: 12/29/20 17:01 Sx's all much better now after tx. Departure - Departure Time of Disposition: 15:10 Disposition: Home, Self-Care 01 Condition: Fair Clinical Impression: Viral gastroenteritis, Mild dehydration, Gastroenteritis Headache Qualifiers: Headache type: unspecified Headache chronicity pattern: acute headache Intractability: not intractable Qualified Code(s): R51.9 - Headache, unspecified - Discharge Information *PRESCRIPTION DRUG MONITORING PROGRAM REVIEWED*: Not Applicable *COPY OF PRESCRIPTION DRUG MONITORING REPORT IN PATIENT [place]: Not Applicable Instructions: Viral Gastroenteritis, Adult, [id number] Referrals: Juan Haas MD [Primary Care Provider] - Forms: ED Department Discharge Additional Instructions: Use Zofran every 6 hrs as needed for nausea control. Take loperamide per package instructions for diarrhea control. Use acetaminophen OR Percocet for pain/COBOS rel ief. Drink something like Gatorade until your vomiting has stopped for 8-12 hrs, then slowly advance diet as tolerated. Follow up with Dr. Scott in the clinic later this week. Sepsis Event Note (ED) - Focused Exam Vital Signs: Vital Signs Temp Pulse Resp BP Pulse Ox 12/29/20 16:56 71 10 L 122/59 L 96 12/29/20 15:01 83 14 153/84 H 93 L 12/29/20 14:00 73 18 133/74 94 L 12/29/20 13:40 36.6 C 73 16 139/77 99 12/29/20 13:31 36.6 C 73 16 139/77 99 - My Orders Last 24 Hours: My Active Orders 12/29/20 13:20 Sodium Chloride 0.9% [Saline Flush] 10 ml FLUSH ASDIRECTED PRN Saline Lock Insert [OM.PC] Routine 12/29/20 13:21 Cardiac Monitoring [RC] .As Directed - Assessment/Plan Last 24 Hours: My Active Orders 12/29/20 13:20 Sodium Chloride 0.9% [Saline Flush] 10 ml FLUSH ASDIRECTED PRN Saline Lock Insert [OM.PC] Routine 12/29/20 13:21 Cardiac Monitoring [RC] .As Directed
[2020-12-29] MEDS ORDERED: Ondansetron 4 MG/2 ML SDV IVPUSH ONE (13:30)
[2020-12-29] MEDS ORDERED: Acetaminophen 500 MG Tab PO ONE (13:31)
[2020-12-29] MEDS ORDERED: Atropine/Diphenoxylate 0.025-2.5 MG Tab PO ONE (13:38)
[2020-12-29] MEDS ORDERED: Lactated Ringers 1,000 ML IV ONE ×2 (14:00→15:45)
--- NOTE | 2020-12-29 15:48 | CRLCT ---
Indication: Severe headache. Technique: Noncontrast head CT Comparison: No comparison Findings: Generalized parenchymal volume loss with periventricular hypo lucencies likely reflecting chronic small vessel ischemic change. No midline shift no abnormal extra-axial air fluid collections. Paranasal sinuses mastoid air cells skull and scalp appear unremarkable aside from mucosal thickening in the ethmoid air cells Impression: 1. No acute intracranial hemorrhage or mass. 2. Mild ethmoid sinus disease. Please note that all CT scans at this facility use dose modulation, iterative reconstruction, and/or weight-based dosing when appropriate to reduce radiation dose to as low as reasonably achievable. Dictated by Julia Peters MD @ Dec 29 2020 3:45PM Signed by Dr. Julia Peters @ Dec 29 2020 3:47PM
[2020-12-29] MEDS ORDERED: oxyCODONE 5 MG Tab PO ONE (16:10)
== END 2020-12-29 17:14 | disposition home or self-care (01) ==
LOC: JP.ED 13:14
DX: A08.4 Viral intestinal infection, unspecified (principal); E86.0 Dehydration; R51.9 Headache, unspecified; I48.91 Unspecified atrial fibrillation; E78.00 Pure hypercholesterolemia, unspecified; I10 Essential (primary) hypertension; K21.9 Gastro-esophageal reflux disease without esophagitis; Z91.048 Other nonmedicinal substance allergy status; Z79.899 Other long term (current) drug therapy
CPT/HCPCS: 36415; 70450; 80053; 81001; 84484; 85027; 85651; 99284; 99285-25; A9270-GY; J7120

== ENCOUNTER 2021-07-23 18:06 | Emergency (ER) | payer MEDICARE, BC ==
--- NOTE | 2021-07-23 18:37 | EDM.PDOC ---
ED HPI GENERAL MEDICAL PROBLEM - General Chief Complaint: Cardiovascular Problem Stated Complaint: CHEST PAIN Time Seen by Provider: 07/23/21 18:22 Source of Information: Reports: Patient History Limitations: Reports: No Limitations - History of Present Illness INITIAL COMMENTS - FREE TEXT/NARRATIVE: pt has a history of atrial fib and she is on elequist. She did not take her meds today she did have left sided chest pain on and off all day. . Onset: Today Duration: Hour(s): Location: Reports: Chest Associated Symptoms: Reports: Chest Pain, Shortness of Breath, Other (pt has a history of atrial fib. ) - Related Data Allergies Allergy/AdvReac Type Severity Reaction Status Date / Time nickel Allergy Severe Hives Verified 07/25/21 12:48 adhesive Allergy Intermediate Rash Verified 07/25/21 12:48 Home Meds: Home Meds Fluticasone Propionate 0.5 gm MC DAILY 03/14/14 [History] Pantoprazole [Protonix] 40 mg PO DAILY 06/07/14 [History] allopurinoL [Zyloprim] 100 mg PO DAILY 06/12/14 [History] Dronedarone [Multaq] 400 mg PO BID 08/20/19 [History] Zolpidem [Ambien] 5 mg PO BEDTIME PRN 08/20/19 [History] Cholestyramine/Aspartame [Cholestyramine Light Powder] 210 gm PO DAILY 12/29/20 [History] Dicyclomine [Bentyl] 10 mg PO ASDIRECTED PRN 12/29/20 [History] Loperamide [Imodium] 2 mg PO ASDIRECTED PRN 12/29/20 [History] Metoclopramide [Reglan] 5 mg PO ASDIRECTED PRN 12/29/20 [History] Apixaban [Eliquis] 5 mg PO BID 07/23/21 [History] Baclofen 20 mg PO BEDTIME 07/23/21 [History] Gabapentin [Neurontin] 100 mg PO QAM 07/23/21 [History] Gabapentin [Neurontin] 200 mg PO BEDTIME 07/23/21 [History] Vit A/Vit C/Vit E/Zinc/Copper [Preservision Areds Softgel] 1 cap PO DAILY 07/23/21 [History] lisinopriL [Lisinopril] 20 mg PO DAILY 07/23/21 [History] traZODone 25 mg PO BEDTIME 07/23/21 [History] Metoprolol Tartrate [Lopressor] 12.5 mg PO Q12HR 07/25/21 [History] Past Medical History HEENT History: Reports: Impaired Vision Cardiovascular History: Reports: Afib, High Cholesterol, Hypertension Gastrointestinal History: Reports: Chronic Diarrhea, Gastritis, GERD, GI Bleed Other Genitourinary History: stent for blockage 25 years ago and removed 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: Musculoskeletal History: Reports: Gout Neurological History: Reports: None Hematologic History: Reports: Blood Transfusion(s) Dermatologic History: Reports: Psoriasis - Infectious Disease History Infectious Disease History: Reports: Chicken Pox, Measles, Mumps, Shingles - Past Surgical History Head Surgeries/Procedures: Reports: None HEENT Surgical History: Reports: Cataract Surgery Cardiovascular Surgical History: Reports: None GI Surgical History: Reports: Appendectomy, Hernia Repair/Other Female Surgical History: Reports: Hysterectomy Other Female Surgeries/Procedures: 1 ovary left Neurological Surgical History: Reports: Lumbar Spine, Spinal Fusion Musculoskeletal Surgical History: Reports: Other (See Below) Other Musculoskeletal Surgeries/Procedures:: back surgery Dermatological Surgical History: Reports: None Social & Family History - Tobacco Use Tobacco Use Status *Q: Former Tobacco User Used Tobacco, but Quit: Yes Month/Year Tobacco Last Used: many years ago - Caffeine Use Caffeine Use: Reports: Coffee - Recreational Drug Use Recreational Drug Use: No - Living Situation & Occupation Living situation: Reports: with Spouse Occupation: Retired (Single dwelling home) ED ROS GENERAL - Review of Systems Review Of Systems: See Below Constitutional: Reports: Weakness, Decreased Appetite HEENT: Reports: No Symptoms Respiratory: Reports: Shortness of Breath Cardiovascular: Reports: Chest Pain Endocrine: Reports: No Symptoms GI/Abdominal: Reports: Other (pt has had 3 days of diarrhea. ) : Reports: No Symptoms Musculoskeletal: Reports: No Symptoms Skin: Reports: Dryness Neurological: Reports: No Symptoms ED EXAM, GENERAL - Physical Exam Exam: See Below Free Text/Narrative:: pt Exam Limited By: No Limitations General Appearance: Alert, Anxious Ears: Normal TMs Ear Exam: Right Ear: Canal Normal Nose: Normal Inspection Throat/Mouth: Normal Inspection Head: Atraumatic Neck: Normal Inspection Respiratory/Chest: No Respiratory Distress Cardiovascular: Irregularly Irregular, Other ( atrial fib at 130. ) GI/Abdominal: Soft, Non-Tender (Female) Exam: Deferred Rectal (Female) Exam: Deferred Back Exam: Other (pt has chronic back pain. ) Extremities: Normal Inspection #1 Interpretation Rhythm: A-Fib EKG Interpretation Comments: pt does not have acute changes. Pt is atrial fib with uncontrolled rate. Course - Vital Signs Last Recorded V/S: Last Vital Signs Temp 35.8 C L 07/23/21 18:07 Pulse 77 07/24/21 01:12 Resp 16 07/24/21 01:12 BP 108/66 07/24/21 01:12 Pulse Ox 99 07/24/21 01:12 - Orders/Labs/Meds Labs: Laboratory Tests 07/23/21 07/23/21 07/23/21 Range/Units 18:19 18:20 18:20 WBC 6.7 (4.5-11.0) K/uL RBC 4.21 (3.30-5.50) M/uL Hgb 12.9 (12.0-15.0) g/dL Hct 39.0 (36.0-48.0) % MCV 93 (80-98) fL MCH 31 (27-31) pg MCHC 33 (32-36) % Plt Count 277 (150-400) K/uL Neut % (Auto) 59.8 (36-66) % Lymph % (Auto) 25.1 (24-44) % [place] % (Auto) 11.8 H (2-6) % Eos % (Auto) 2.4 (2-4) % Baso % (Auto) 0.9 (0-1) % Sodium 140 (140-148) mmol/L Potassium 4.7 (3.6-5.2) mmol/L Chloride 107 (100-108) mmol/L Carbon Dioxide 19 L (21-32) mmol/L Anion Gap 18.7 H (5.0-14.0) mmol/L BUN 20 H (7-18) mg/dL Creatinine 0.8 (0.6-1.0) mg/dL Est Cr Clr Drug Dosing 44.85 mL/min Estimated GFR (MDRD) > 60 (>60) Glucose 102 (74-106) mg/dL Calcium 8.8 (8.5-10.1) mg/dL Magnesium (1.8-2.4) mg/dL Total Bilirubin 0.3 (0.2-1.0) mg/dL AST 20 (15-37) U/L ALT 25 (12-78) U/L Alkaline Phosphatase 90 (46-116) U/L Troponin I (0.000-0.056) ng/mL Total Protein 6.3 L (6.4-8.2) g/dL Albumin 3.5 (3.4-5.0) g/dL Globulin 2.8 (2.3-3.5) g/dL Albumin/Globulin Ratio 1.2 (1.2-2.2) TSH, Ultra Sensitive 1.258 (0.358-3.740) uIU/mL Urine Color (YELLOW) Urine Appearance (CLEAR) Urine pH (5.0-8.0) Ur Specific [place] (1.008-1.030) Urine Protein (NEGATIVE) mg/dL Urine Glucose (UA) (NEGATIVE) mg/dL Urine Ketones (NEGATIVE) mg/dL Urine Occult Blood (NEGATIVE) Urine Nitrite (NEGATIVE) Urine Bilirubin (NEGATIVE) Urine Urobilinogen (0.2-1.0) EU/dL Ur Leukocyte Esterase (NEGATIVE) Urine RBC (0-5) Urine WBC (0-5) Ur Epithelial Cells Amorphous Sediment Urine Bacteria Urine Mucus 07/23/21 07/23/21 07/23/21 Range/Units 18:20 20:19 22:41 WBC (4.5-11.0) K/uL RBC (3.30-5.50) M/uL Hgb (12.0-15.0) g/dL Hct (36.0-48.0) % MCV (80-98) fL MCH (27-31) pg MCHC (32-36) % Plt Count (150-400) K/uL Neut % (Auto) (36-66) % Lymph % (Auto) (24-44) % [place] % (Auto) (2-6) % Eos % (Auto) (2-4) % Baso % (Auto) (0-1) % Sodium (140-148) mmol/L Potassium (3.6-5.2) mmol/L Chloride (100-108) mmol/L Carbon Dioxide (21-32) mmol/L Anion Gap (5.0-14.0) mmol/L BUN (7-18) mg/dL Creatinine (0.6-1.0) mg/dL Est Cr Clr Drug Dosing mL/min Estimated GFR (MDRD) (>60) Glucose (74-106) mg/dL Calcium (8.5-10.1) mg/dL Magnesium 2.0 (1.8-2.4) mg/dL Total Bilirubin (0.2-1.0) mg/dL AST (15-37) U/L ALT (12-78) U/L Alkaline Phosphatase (46-116) U/L Troponin I < 0.017 (0.000-0.056) ng/mL Total Protein (6.4-8.2) g/dL Albumin (3.4-5.0) g/dL Globulin (2.3-3.5) g/dL Albumin/Globulin Ratio (1.2-2.2) TSH, Ultra Sensitive (0.358-3.740) uIU/mL Urine Color Yellow (YELLOW) Urine Appearance Clear (CLEAR) Urine pH 5.5 (5.0-8.0) Ur Specific [place] 1.015 (1.008-1.030) Urine Protein Negative (NEGATIVE) mg/dL Urine Glucose (UA) Negative (NEGATIVE) mg/dL Urine Ketones Negative (NEGATIVE) mg/dL Urine Occult Blood Negative (NEGATIVE) Urine Nitrite Negative (NEGATIVE) Urine Bilirubin Negative (NEGATIVE) Urine Urobilinogen 0.2 (0.2-1.0) EU/dL Ur Leukocyte Esterase Negative (NEGATIVE) Urine RBC 0-5 (0-5) Urine WBC 0-5 (0-5) Ur Epithelial Cells Rare Amorphous Sediment Not seen Urine Bacteria Rare Urine Mucus Not seen Meds: Medications Discontinued Medications Generic Name Dose Route Start Last Admin Trade Name Freq PRN Reason Stop Dose Admin Hydrocodone Bitart/Acetaminophen 1 tab 07/23/21 20:06 07/23/21 20:28 Acetaminophen/Hydrocodone 325-5 Mg Tab PO 07/23/21 20:07 1 tab ONETIME ONE Administration Apixaban 5 mg 07/23/21 18:51 07/23/21 19:18 Apixaban 5 Mg Tab PO 07/23/21 18:52 5 mg ONETIME ONE Administration Diazepam 2.5 mg 07/23/21 20:10 07/23/21 20:29 Diazepam 5 Mg Tab PO 07/23/21 20:11 2.5 mg ONETIME ONE Administration Diltiazem HCl 10 mg 07/23/21 18:38 07/23/21 18:42 Diltiazem 25 Mg/5 Ml Sdv IVPUSH 07/23/21 18:39 10 mg ONETIME ONE Administration Diltiazem HCl 100 mg/ Sodium 100 mls @ 5 mls/hr 07/23/21 18:45 07/23/21 21:11 Chloride IV 15 mg/hr TITRATE MARY 15 mls/hr Titration Protocol 5 MG/HR Sodium Chloride 1,000 mls @ 250 mls/hr 07/23/21 19:15 07/23/21 19:12 Normal Saline IV 250 mls/hr ASDIRECTED MARY Administration Metoprolol Tartrate 25 mg 07/23/21 23:50 07/24/21 00:00 Metoprolol Tartrate 25 Mg Tab PO 07/23/21 23:51 25 mg ONETIME ONE Administration - Re-Assessments/Exams Free Text/Narrative Re-Assessment/Exam: 07/24/21 01:06 pt was found to have a normal trop. Her ekg did not show acute st changes. she was started on a cardizem drip which slowed her down. her rates were in the 90s. She did not convert. The drip was stopped since this was a chronic problem and she was given metoprol. 25 mg. Her rate has stayed stable. She has not had further chest pain. 07/24/21 01:09 Departure - Departure Time of Disposition: 01:10 Disposition: Home, Self-Care 01 Condition: Fair Clinical Impression: Atrial fibrillation with rapid ventricular response, Chest pain, Dehydration Instructions: Atrial Fibrillation, Dehydration, Adult Referrals: Juan Haas MD [Primary Care Provider] - Forms: ED Department Discharge Care Plan Goals: push fluids, be sure to take the multaq regularly and take a 400mg dose when she gets home. add metoprolol tartrate 12.5 once in the morning and once in the evening. return to clinic if further problems. Sepsis Event Note (ED) - Evaluation Sepsis Screening Result: No Definite Risk
[2021-07-23] MEDS ORDERED: Diltiazem 25 MG/5 ML SDV IVPUSH ONE (18:38)
[2021-07-23] MEDS ORDERED: Diltiazem 100 MG in Sodium Chloride 0.9% 100 ML IV SCH (18:45)
[2021-07-23] MEDS ORDERED: Apixaban 5 MG Tab PO ONE (18:51)
[2021-07-23] MEDS ORDERED: Sodium Chloride 0.9% 1,000 ML IV SCH (19:15)
[2021-07-23] MEDS ORDERED: Acetaminophen/HYDROcodone 325-5 MG Tab PO ONE (20:06)
[2021-07-23] MEDS ORDERED: Diazepam 5 MG Tab PO ONE (20:10)
[2021-07-23] MEDS ORDERED: Metoprolol Tartrate 25 MG Tab PO ONE (23:50)
--- NOTE | 2021-07-24 09:10 | CR ---
CHEST: Portable 07/23/2021 at 6:33 PM CLINICAL HISTORY:Chest pain COMPARISON:05/01/2020 FINDINGS: The heart size, pulmonary vascularity and hilar structures are normal. No infiltrate effusion or pneumothorax is seen. There are atherosclerotic changes in the aorta. IMPRESSION: No acute cardiopulmonary process.
== END 2021-07-24 01:22 | disposition home or self-care (01) ==
LOC: JP.ED 18:06
DX: I48.91 Unspecified atrial fibrillation (principal); E86.0 Dehydration; E78.00 Pure hypercholesterolemia, unspecified; I10 Essential (primary) hypertension; M10.9 Gout, unspecified; Z79.01 Long term (current) use of anticoagulants; Z91.048 Other nonmedicinal substance allergy status; Z79.899 Other long term (current) drug therapy; Z87.891 Personal history of nicotine dependence
CPT/HCPCS: 36415; 71045; 80053; 81001; 83735; 84443; 84484; 85025; 93005; 96365; 96366; 96376; 99285; A9270; J3490; J7030

== ENCOUNTER 2021-07-25 12:23 | Emergency (ER) | payer MEDICARE, BC ==
[2021-07-25] MEDS ORDERED: Sodium Chloride 0.9% 10 ML Syringe FLUSH PRN (14:02)
--- NOTE | 2021-07-25 14:05 | EDM.PDOC ---
ED HPI GENERAL MEDICAL PROBLEM - General Chief Complaint: Cardiovascular Problem Stated Complaint: CARDIAC ISSUES Time Seen by Provider: 07/25/21 13:48 Source of Information: Reports: Patient, Family, RN Notes Reviewed History Limitations: Reports: No Limitations - History of Present Illness INITIAL COMMENTS - FREE TEXT/NARRATIVE: 80-year-old female presents to the emergency department today with weakness and chest pressure, she has a known history of paroxysmal atrial fibrillation that has been ongoing for the last year and a half, she is anticoagulated with Eliquis. She was evaluated in the emergency department on the for new onset of chest pressure found to be in atrial fibrillation rate was slowed to below 110 increased and metoprolol. However since that time she has continued to feel weak lightheaded near syncopal unable to function on a daily times. Her daughter is a nurse practitioner has found her heart rate to elevate the 140s 150s at home then will reduce down to around 100 Headache Pain Score (Numeric/FACES): 5 - Related Data Allergies Allergy/AdvReac Type Severity Reaction Status Date / Time nickel Allergy Severe Hives Verified 07/25/21 12:48 adhesive Allergy Intermediate Rash Verified 07/25/21 12:48 Home Meds: Home Meds Fluticasone Propionate 0.5 gm MC DAILY 03/14/14 [History] Pantoprazole [Protonix] 40 mg PO DAILY 06/07/14 [History] allopurinoL [Zyloprim] 100 mg PO DAILY 06/12/14 [History] Dronedarone [Multaq] 400 mg PO BID 08/20/19 [History] Zolpidem [Ambien] 5 mg PO BEDTIME PRN 08/20/19 [History] Cholestyramine/Aspartame [Cholestyramine Light Powder] 210 gm PO DAILY 12/29/20 [History] Dicyclomine [Bentyl] 10 mg PO ASDIRECTED PRN 12/29/20 [History] Loperamide [Imodium] 2 mg PO ASDIRECTED PRN 12/29/20 [History] Metoclopramide [Reglan] 5 mg PO ASDIRECTED PRN 12/29/20 [History] Apixaban [Eliquis] 5 mg PO BID 07/23/21 [History] Baclofen 20 mg PO BEDTIME 07/23/21 [History] Gabapentin [Neurontin] 100 mg PO QAM 07/23/21 [History] Gabapentin [Neurontin] 200 mg PO BEDTIME 07/23/21 [History] Vit A/Vit C/Vit E/Zinc/Copper [Preservision Areds Softgel] 1 cap PO DAILY 07/23/21 [History] lisinopriL [Lisinopril] 20 mg PO DAILY 07/23/21 [History] traZODone 25 mg PO BEDTIME 07/23/21 [History] Metoprolol Tartrate [Lopressor] 12.5 mg PO Q12HR 07/25/21 [History] Past Medical History HEENT History: Reports: Impaired Vision Cardiovascular History: Reports: Afib, High Cholesterol, Hypertension Gastrointestinal History: Reports: Chronic Diarrhea, Gastritis, GERD, GI Bleed Other Genitourinary History: stent for blockage 25 years ago and removed 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: Musculoskeletal History: Reports: Gout Hematologic History: Reports: Blood Transfusion(s) Dermatologic History: Reports: Psoriasis - Infectious Disease History Infectious Disease History: Reports: Chicken Pox, Measles, Mumps, Shingles - Past Surgical History Head Surgeries/Procedures: Reports: None HEENT Surgical History: Reports: Cataract Surgery Cardiovascular Surgical History: Reports: None GI Surgical History: Reports: Appendectomy, Hernia Repair/Other Female Surgical History: Reports: Hysterectomy Other Female Surgeries/Procedures: 1 ovary left Neurological Surgical History: Reports: Lumbar Spine, Spinal Fusion Musculoskeletal Surgical History: Reports: Other (See Below) Other Musculoskeletal Surgeries/Procedures:: back surgery Dermatological Surgical History: Reports: None Social & Family History - Tobacco Use Tobacco Use Status *Q: Never Tobacco User - Caffeine Use Caffeine Use: Reports: Coffee - Recreational Drug Use Recreational Drug Use: No - Living Situation & Occupation Living situation: Reports: with Spouse Occupation: Retired (Single dwelling home) ED ROS GENERAL - Review of Systems Review Of Systems: See Below Constitutional: Reports: No Symptoms HEENT: Reports: No Symptoms Respiratory: Reports: No Symptoms Cardiovascular: Reports: Chest Pain, Lightheadedness, Syncope GI/Abdominal: Reports: No Symptoms ED EXAM, GENERAL - Physical Exam Exam: See Below Exam Limited By: No Limitations General Appearance: Alert, WD/WN, No Apparent Distress Respiratory/Chest: No Respiratory Distress, Lungs Clear, Normal Breath Sounds, No Accessory Muscle Use, Chest Non-Tender Cardiovascular: No Murmur, Irregularly Irregular GI/Abdominal: Soft, Non-Tender ED CARDIOLOGY PROCEDURES - Cardioversion Time of Cardioversion: 16:23 Indication: Unstable Patient Counseled: Yes Informed Consent Obtained: Yes Preparation: IV Access, Airway Management Equipment, Supplemental Oxygen, Monitor, Reversal Agents Available, 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) Pre-Procedure Sedation: Propofol Cardioversion Energy: 200J Sync Mode: Biphasic Successful: Yes Number of Attempts: 1 Patient Condition Post Cardioversion: Improved Post Cardioversion EKG Reviewed: Yes #1 Interpretation EKG Date: 07/25/21 Rhythm: A-Fib [place]: Normal P-Wave: Absent QRS: Normal ST-T: Normal QT: Normal Comparison: NA - No Prior EKG #2 Interpretation EKG Date: 07/25/21 Rhythm: NSR [place]: Normal P-Wave: Present QRS: Normal ST-T: Normal QT: Normal Comparison: Change From Previous EKG Course - Vital Signs Last Recorded V/S: Last Vital Signs Temp 97.3 F 07/25/21 12:43 Pulse 49 L 07/25/21 17:08 Resp 12 07/25/21 17:08 BP 111/59 L 07/25/21 17:08 Pulse Ox 95 07/25/21 17:08 - Orders/Labs/Meds Orders: Active Orders 24 hr Category Date Time Status Cardiac Monitoring [RC] .As Directed Care 07/25/21 14:03 Active Peripheral IV Care [RC] . DIRECTED Care 07/25/21 14:05 Active Sodium Chloride 0.9% [Normal Saline] 1,000 ml Med 07/25/21 14:15 Active IV ASDIRECTED Sodium Chloride 0.9% [Saline Flush] Med 07/25/21 14:02 Active 10 ml FLUSH ASDIRECTED PRN Peripheral IV Insertion Adult [OM.PC] Stat Oth 07/25/21 14:02 Ordered EKG 12 Lead [EK] Stat Ther 07/25/21 14:05 Ordered Medication Orders Sodium Chloride (Normal Saline) 1,000 mls @ 125 mls/hr IV ASDIRECTED MARY Last Admin: 07/25/21 14:18 Dose: 125 mls/hr Documented by: ARNEL Sodium Chloride (Sodium Chloride 0.9% 10 Ml Syringe) 10 ml FLUSH ASDIRECTED PRN PRN Reason: Keep Vein Open Last Admin: 07/25/21 14:18 Dose: 10 ml Documented by: ARNEL Labs: Laboratory Tests 07/25/21 07/25/21 Range/Units 14:02 14:02 WBC 6.9 (4.5-11.0) K/uL RBC 3.87 (3.30-5.50) M/uL Hgb 11.7 L (12.0-15.0) g/dL Hct 36.4 (36.0-48.0) % MCV 94 (80-98) fL MCH 30 (27-31) pg MCHC 32 (32-36) % Plt Count 268 (150-400) K/uL Neut % (Auto) 59.3 (36-66) % Lymph % (Auto) 26.5 (24-44) % [place] % (Auto) 10.0 H (2-6) % Eos % (Auto) 3.5 (2-4) % Baso % (Auto) 0.7 (0-1) % Sodium 143 (140-148) mmol/L Potassium 4.6 (3.6-5.2) mmol/L Chloride 108 (100-108) mmol/L Carbon Dioxide 22 (21-32) mmol/L Anion Gap 13.1 (5.0-14.0) mmol/L BUN 22 H (7-18) mg/dL Creatinine 1.0 (0.6-1.0) mg/dL Est Cr Clr Drug Dosing 36.67 mL/min Estimated GFR (MDRD) 53 L (>60) Glucose 94 (74-106) mg/dL Calcium 8.8 (8.5-10.1) mg/dL Total Bilirubin 0.3 (0.2-1.0) mg/dL AST 14 L (15-37) U/L ALT 23 (12-78) U/L Alkaline Phosphatase 77 (46-116) U/L Troponin I < 0.017 (0.000-0.056) ng/mL Total Protein 6.0 L (6.4-8.2) g/dL Albumin 3.3 L (3.4-5.0) g/dL Globulin 2.7 (2.3-3.5) g/dL Albumin/Globulin Ratio 1.2 (1.2-2.2) Meds: Medications Generic Name Dose Route Start Last Admin Trade Name Freq PRN Reason Stop Dose Admin Sodium Chloride 1,000 mls @ 125 mls/hr 07/25/21 14:15 07/25/21 14:18 Normal Saline IV 125 mls/hr ASDIRECTED MARY Administration Sodium Chloride 10 ml 07/25/21 14:02 07/25/21 14:18 Sodium Chloride 0.9% 10 Ml Syringe FLUSH 10 ml ASDIRECTED PRN Administration Keep Vein Open Discontinued Medications Generic Name Dose Route Start Last Admin Trade Name Freq PRN Reason Stop Dose Admin Fentanyl 50 mcg 07/25/21 15:53 07/25/21 16:00 Fentanyl 100 Mcg/2 Ml Sdv IVPUSH 07/25/21 15:54 50 mcg ONETIME ONE Administration Propofol Confirm 07/25/21 16:25 Propofol 200 Mg/20 Ml Sdv Administered 07/25/21 16:26 Dose 200 mg .ROUTE .STK-MED ONE Departure - Departure Time of Disposition: 17:22 Disposition: Home, Self-Care 01 Condition: Fair Clinical Impression: Atrial fibrillation with rapid ventricular response Instructions: Atrial Fibrillation, [id number] Referrals: Juan Haas MD [Primary Care Provider] - Forms: ED Department Discharge Additional Instructions: Continue with your current medications, recommend continue with the metoprolol that was started this week keep your follow-up appointment with cardiology Sepsis Event Note (ED) - Evaluation Sepsis Screening Result: No Definite Risk - Focused Exam Vital Signs: Vital Signs Temp Pulse Resp BP Pulse Ox 07/25/21 17:08 45 L 14 111/59 L 96 07/25/21 15:42 89 14 104/62 99 07/25/21 12:43 97.3 F 113 H 16 119/84 97 - My Orders Last 24 Hours: My Active Orders 07/25/21 14:02 Sodium Chloride 0.9% [Saline Flush] 10 ml FLUSH ASDIRECTED PRN Peripheral IV Insertion Adult [OM.PC] Stat 07/25/21 14:03 Cardiac Monitoring [RC] .As Directed 07/25/21 14:05 Peripheral IV Care [RC] . DIRECTED EKG 12 Lead [EK] Stat 07/25/21 14:15 Sodium Chloride 0.9% [Normal Saline] 1,000 ml IV ASDIRECTED - Assessment/Plan Last 24 Hours: My Active Orders 07/25/21 14:02 Sodium Chloride 0.9% [Saline Flush] 10 ml FLUSH ASDIRECTED PRN Peripheral IV Insertion Adult [OM.PC] Stat 07/25/21 14:03 Cardiac Monitoring [RC] .As Directed 07/25/21 14:05 Peripheral IV Care [RC] . DIRECTED EKG 12 Lead [EK] Stat 07/25/21 14:15 Sodium Chloride 0.9% [Normal Saline] 1,000 ml IV ASDIRECTED Plan: Assessment Acuity = acute Site and laterality = atrial fibrillation with rapid ventricular response status post cardioversion Etiology = unknown Manifestations = chest pressure now resolved Location of injury = Home Lab values = CBC BMP, troponin within normal limits initial EKG demonstrates atrial fibrillation follow-up to demonstrate sinus rhythm Plan Symptoms resolved with cardioversion was able to ambulate around the emergency department felt like she was back to her normal baseline had no difficulties observe no significant change in heart rate respiration rate O2 sats has a follow-up appointment with cardiology on Wednesday This note was dictated using [id number] voice recognition software please call with any questions on syntax or grammar.
[2021-07-25] MEDS ORDERED: Sodium Chloride 0.9% 1,000 ML IV SCH (14:15)
[2021-07-25] MEDS ORDERED: fentaNYL 100 MCG/2 ML SDV IVPUSH ONE (15:53)
[2021-07-25] MEDS ORDERED: Propofol 200 MG/20 ML SDV ONE (16:25)
== END 2021-07-25 17:28 | disposition home or self-care (01) ==
LOC: JP.ED 12:23
DX: I48.91 Unspecified atrial fibrillation (principal); I10 Essential (primary) hypertension; K21.9 Gastro-esophageal reflux disease without esophagitis; M10.9 Gout, unspecified; Z91.048 Other nonmedicinal substance allergy status; Z79.01 Long term (current) use of anticoagulants; Z79.899 Other long term (current) drug therapy
CPT/HCPCS: 36415; 80053; 84484; 85025; 92960; 93005; 96374; 99285; J2704; J3010; J7030

== ENCOUNTER 2022-02-20 14:57 | Emergency (ER) | payer MEDICARE, BC ==
[2022-02-20] MEDS ORDERED: HYDROmorphone 0.5 MG/0.5 ML Syringe IVPUSH ONE (16:00)
[2022-02-20] MEDS ORDERED: Sodium Chloride 0.9% 10 ML Syringe FLUSH PRN (16:00)
[2022-02-20] MEDS ORDERED: Labetalol 20 MG/4 ML Syringe IVPUSH ONE (16:37)
[2022-02-20] MEDS ORDERED: Labetalol 20 MG/4 ML Syringe ONE (16:50)
== END 2022-02-20 19:10 | disposition home or self-care (01) ==
LOC: JP.ED 14:57
DX: R51.9 Headache, unspecified (principal); I10 Essential (primary) hypertension; I48.91 Unspecified atrial fibrillation; E78.00 Pure hypercholesterolemia, unspecified; M10.9 Gout, unspecified; K21.9 Gastro-esophageal reflux disease without esophagitis; Z91.048 Other nonmedicinal substance allergy status; Z79.899 Other long term (current) drug therapy
CPT/HCPCS: 36415; 70450; 80053; 81001; 85025; 96374; 96375; 99282; 99284; J1170; J3490

== ENCOUNTER 2023-05-09 15:57 | Emergency (ER) | payer MEDICARE, BC ==
[2023-05-09] MEDS ORDERED: Sodium Chloride 0.9% 10 ML Syringe FLUSH PRN (16:36)
[2023-05-09] MEDS ORDERED: LORazepam 2 MG/ML SDV IVPUSH ONE (16:39)
[2023-05-09] MEDS ORDERED: Sodium Chloride 0.9% 10 ML Syringe FLUSH ONE (16:48)
[2023-05-09 16:54] LABS: BASOPHILS ABSOLUTE AUTO 0.04 K/uL (0.00-0.10); BASOPHILS PERCENT AUTO 0.6 % (0.1-1.3); EOSINOPHILS PERCENT AUTO 1.5 % (0.0-5.4); HEMATOCRIT 32.2 % (34.3-46.0); HEMOGLOBIN 10.9 g/dL (11.2-15.5); IMMATURE GRAN PERCENT AUTO 0.3 % (0.0-0.7); LYMPHOCYTES PERCENT AUTO 20.4 % (11.4-47.7); MEAN CORPUSCULAR HEMOGLOBIN 32.2 pg (31.6-35.5); MEAN CORPUSCULAR HGB CONC 33.9 g/dL (31.6-35.5); MONOCYTES ABSOLUTE AUTO 0.68 K/uL (0.20-0.90); MONOCYTES PERCENT AUTO 9.9 % (3.3-12.6); NEUTROPHILS ABSOLUTE AUTO 4.61 K/uL (1.0-7.6); NEUTROPHILS PERCENT AUTO 67.3 % (40.0-78.1); PLATELET COUNT,PLT 258 K/uL (130-375); RED BLOOD CELL COUNT 3.39 M/uL (3.77-5.24); WHITE BLOOD CELL COUNT,WBC 6.9 K/uL (3.2-11.0)
[2023-05-09 16:55] LABS: IMMATURE GRAN ABSOLUTE AUTO 0.02 K/uL (0.00-0.23)
[2023-05-09] MEDS ORDERED: Sodium Chloride 0.9% 75 ML IV SCH (17:00)
[2023-05-09] MEDS ORDERED: Iopamidol 755 Mg/ML 100 ML Bottle IV SCH (17:00)
[2023-05-09 17:14] LABS: PROTHROMBIN TIME 10.3 sec (9.2-10.6); PTT,PARTIAL THROMBOPLSTIN TIME 33.6 sec (21.8-27.3)
[2023-05-09 17:17] LABS: A/G RATIO 1.1 (1.2-2.2); ALANINE AMINOTRANSFERASE,ALT 22 U/L (12-78); ALBUMIN 3.6 g/dL (3.4-5.0); ALKALINE PHOSPHATASE 133 U/L (46-116); ASPARTATE AMNIOTRANSFERASE,AST 21 U/L (15-37); BILIRUBIN TOTAL 0.3 mg/dL (0.2-1.0); BLOOD UREA NITROGEN,BUN 20 mg/dL (7-18); CALCIUM 8.7 mg/dL (8.5-10.1); CARBON DIOXIDE,CO2 19 mmol/L (21-32); CHLORIDE,CL 94 mmol/L (100-108); EST CRCL DRUG DOSING (CG) 33.12 mL/min; ESTIMATED GFR 56 mL/min (>60); GLUCOSE RANDOM 121 mg/dL (74-106); PROTEIN TOTAL,TP 6.9 g/dL (6.4-8.2); SODIUM,NA 128 mmol/L (140-148); TROPONIN I HIGH SENSITIVITY 10.5 pg/mL (<=60.3)
[2023-05-09] MEDS ORDERED: Sodium Chloride 0.9% 250 ML IV SCH (19:00)
[2023-05-09 19:45] LABS: APPEARANCE,URINE CLEAR (CLEAR); BILIRUBIN,URINE NEGATIVE (NEGATIVE); COLOR,URINE YELLOW (YELLOW); GLUCOSE,URINE NEGATIVE (NEGATIVE); KETONES,URINE NEGATIVE (NEGATIVE); LEUKOCYTE ESTERASE,URINE NEGATIVE (NEGATIVE); NITRITE,URINE NEGATIVE (NEGATIVE); OCCULT BLOOD,URINE NEGATIVE (NEGATIVE); PH,URINE 7.5 (5.0-8.0); PROTEIN,URINE NEGATIVE (NEGATIVE); UROBILINOGEN,URINE 0.2 EU/dL (0.2-1.0)
[2023-05-09 19:56] LABS: AMORPHOUS SEDIMENT,URINE NOT SEEN; BACTERIA,URINE RARE; EPITHELIAL CELLS,URINE RARE; MUCUS,URINE RARE; RBC,URINE 0-5 (0-5); WBC,URINE 0-5 (0-5)
== END 2023-05-09 22:09 | disposition home or self-care (01) ==
LOC: JP.ED 15:57
DX: E86.0 Dehydration (principal); I48.91 Unspecified atrial fibrillation; I10 Essential (primary) hypertension; K21.9 Gastro-esophageal reflux disease without esophagitis; Z91.048 Other nonmedicinal substance allergy status; Z79.01 Long term (current) use of anticoagulants; Z79.899 Other long term (current) drug therapy
CPT/HCPCS: 36415; 70450; 70496; 70498; 80053; 81001; 84484; 85025; 85610; 85730; 93005; 96360; 99284; J3490; J7050; Q9967

== ENCOUNTER 2025-09-15 15:25 | Emergency (ER) | payer MEDICARE, BC ==
[2025-09-15 17:06] LABS: CORONAVIRUS COVID-19 NAA NEGATIVE (NEGATIVE); INFLUENZA A NAA POSITIVE (NEGATIVE); INFLUENZA B NAA NEGATIVE (NEGATIVE); RESPIRATORY SYNCYTIAL VIR NAA NEGATIVE (NEGATIVE)
== END 2025-09-15 17:57 | disposition home or self-care (01) ==
LOC: JP.ED 15:25
DX: J10.1 Influenza due to other identified influenza virus with other respiratory manifestations (principal); I10 Essential (primary) hypertension; I48.91 Unspecified atrial fibrillation; M19.90 Unspecified osteoarthritis, unspecified site; Z79.899 Other long term (current) drug therapy; Z79.51 Long term (current) use of inhaled steroids; Z88.8 Allergy status to other drugs, medicaments and biological substances; Z91.048 Other nonmedicinal substance allergy status; Z79.01 Long term (current) use of anticoagulants; Z90.49 Acquired absence of other specified parts of digestive tract; Z90.710 Acquired absence of both cervix and uterus
CPT/HCPCS: 71046; 71046-26; 87637; 99283